=== PATIENT | female | born 1990 | race American Indian/Alaskan Native ===

== ENCOUNTER 2017-07-06 21:45 | Emergency (ER) | payer MEDICAID, OTHER ==
--- NOTE | 2017-07-07 01:37 | Ultrasound Report ---
FINAL REPORT PROCEDURE: US OB \T\gt; = 14 WEEKS FETUS TECHNIQUE: Real-time transabdominal sonography of the uterus, placenta, amniotic fluid, adnexa, and fetus was performed with image documentation. Measurements were obtained to determine age/size. M-mode Doppler was used to document heartbeat. CPT 68837 HISTORY: Complete OB US Patient fell from stairs COMPARISON: No prior studies are available for comparison. FINDINGS: ADDITIONAL GESTATION: None. GENERAL: IUP: Single living intrauterine . Position: Cephalic Placental position: Anterior, without previa. Amniotic fluid volume: Normal. Amniotic fluid index is 10.5 centimeters. MATERNAL: Uterus: Within normal limits. Cervical length: 3.5 cm. Internal Os: Closed. FETUS: Heart rate and rhythm: BPM, Regular. anatomic survey: Limited visualization of the neuro anatomy, spine and umbilical cord insertion. MEASUREMENTS: BPD: 9.16 centimeters correspond at 37 weeks and 1 day HC: 32.54 centimeters correspond at 36 weeks and 6 days AC: 29.37 centimeters correspond at 33 weeks and 3 days FL: 7.26 centimeters correspond at 37 weeks and 1 day Mean Gestational Age (composite criteria): 36 weeks and 1 day Ratio biometry: Normal. Estimated Weight: 2615 grams. Interval growth: No prior study available for comparison. Estimated Due Date (earliest scan): 08/02/2017 IMPRESSION: Single intrauterine gestation at 36 weeks and 1 day. Estimated due date: 08/02/2017. Anatomic survey is limited due to advanced gestational age.
[2017-07-07] MEDS ORDERED: TYLENOL PO ONE (02:15)
--- NOTE | 2017-07-07 02:32 | XRay Report ---
FINAL REPORT PROCEDURE: XR ANKLE 2V RT TECHNIQUE: RIGHT ankle radiographs, AP and lateral views. HISTORY: fall, ankle/foot pain, Consent signed COMPARISON: No prior studies are available for comparison. FINDINGS: Fracture (s) and/or Dislocation(s): There is a faint density dorsal to the navicular bone which could be a tiny cortical avulsion fracture. Bony structures are otherwise intact. Alignment: Normal. Joint space(s): Normal. Soft tissues: There is pretibial soft tissue swelling. Bone mineralization: Normal. Foreign bodies: Normal. Calcaneal spurring: Normal. IMPRESSION: Possible tiny cortical avulsion fracture of the dorsal aspect of the navicular bone with adjacent soft tissue swelling..
--- NOTE | 2017-07-07 02:36 | XRay Report ---
FINAL REPORT PROCEDURE: XR FOOT 2V RT TECHNIQUE: RIGHT foot radiographs, AP and lateral views. HISTORY: fall, ankle/foot pain, Consent signed COMPARISON: No prior studies are available for comparison. FINDINGS: Fracture (s) and/or Dislocation(s): There is a tiny cortical density dorsal to the navicular bone which could be a nondisplaced cortical avulsion fracture. Remainder the bony structures are intact. Alignment: Normal. Joint space(s): Normal. Soft tissues: There is pretibial soft tissue swelling. There is no mass. Bone mineralization: Normal. Foreign bodies: None. Calcaneal spurring: None. IMPRESSION: Possible tiny cortical avulsion fracture of the navicular bone with soft tissue swelling. There is no joint dislocation.
--- NOTE | 2017-07-07 02:50 | Emergency Department Report ---
ED Fall HPI - General Chief Complaint: Extremity Injury, Lower Stated Complaint: FALL Source: patient Mode of arrival: Wheelchair - Related Data Home Medications Medication Instructions Recorded Confirmed Last Taken Vit#96/Ferrous Fum/FA 1 tab PO DAILY 03/29/14 03/29/14 03/28/14 12:00 [ Tablet] 1 Allergies Allergy/AdvReac Type Severity Reaction Status Date / Time No Known Allergies Allergy Unverified 03/29/14 00:52 ED Review of Systems ROS: Stated complaint: FALL Other details as noted in HPI ED Past Medical Hx - Past Medical History Previous Medical History?: No Hx Hypertension: No Hx Congestive Heart Failure: No Hx Diabetes: No Hx Deep Vein Thrombosis: No Hx Renal Disease: No Hx Sickle Cell Disease: No Hx Seizures: No Hx Asthma: No Hx COPD: No Hx HIV: No - Surgical History Past Surgical History?: No - Social History Smoking Status: Never Smoker Substance Use Type: None - Medications Home Medications: Home Medications Medication Instructions Recorded Confirmed Last Taken Type Vit#96/Ferrous Fum/FA 1 tab PO DAILY 03/29/14 03/29/14 03/28/14 12:00 History [ Tablet] 1 ED Physical Exam - General Limitations: No Limitations ED Course Vital Signs 07/07/17 01:04 Temperature 98.7 F Pulse Rate 84 Respiratory 18 Rate Blood Pressure 118/85 [Right] O2 Sat by Pulse 100 Oximetry Critical care attestation.: If time is entered above; I have spent that time in minutes in the direct care of this critically ill patient, excluding procedure time. ED Disposition Condition: Stable Instructions: Labor/ Labor Instructions Referrals: PRIMARY CARE, [Primary Care Provider] - 7 Days Forms: [facility] Discharge Summary Print Language: EGYPTIAN
[2017-07-07 05:54] VITALS: BP 134/67
== END 2017-07-07 05:54 | disposition home or self-care (01) ==
LOC: ED 21:45 → EDSTATUS 22:18 → TRG 22:30 → ED 07-07 05:54
DX: O26.893 Other specified pregnancy related conditions, third trimester (principal); Z3A.36 36 weeks gestation of pregnancy; M25.572 Pain in left ankle and joints of left foot; W10.8XXA Fall (on) (from) other stairs and steps, initial encounter; Y93.89 Activity, other specified; Y92.89 Other specified places as the place of occurrence of the external cause; Y99.8 Other external cause status
CPT/HCPCS: 59025; 76805

== ENCOUNTER 2017-07-30 19:04 | Inpatient (IN) | payer OTHER ==
[2017-07-30] MEDS ORDERED: SUBLIMAZE IV PRN (22:55)
[2017-07-30] MEDS ORDERED: STADOL IV PRN (22:55)
[2017-07-30] MEDS ORDERED: CERVIDIL VG ONE (22:56)
[2017-07-30] MEDS ORDERED: AMBIEN PO PRN (22:57)
[2017-07-30] MEDS ORDERED: LACTATED RINGERS 1,000 ML IV SCH (23:00)
[2017-07-30 23:56] LABS: Hematocrit 54.3 % (30.3-42.9); Hemoglobin 17.2 gm/dl (10.1-14.3); Mean Corpuscular HGB Conc 32 % (30-34); Mean Corpuscular Hemoglobin 28 pg (28-32); Mean Corpuscular Volume 88 fl (79-97); Red Cell Distribution Width 16.5 % (13.2-15.2); White Blood Count 4.4 K/mm3 (4.5-11.0)
[2017-07-31 00:01] LABS: Platelet Count 83 K/mm3 (140-440)
[2017-07-31] MEDS ORDERED: PITOCin/NS 20 UNIT/1000ML DRIP 20,000 MILLIUNITS/1,000 ML BAG IV ONE (00:31)
[2017-07-31] MEDS ORDERED: POLYCILLIN/NS 2 GM/100 ML 0 GM/0 ML BAG IV ONE (00:31)
[2017-07-31] MEDS ORDERED: XYLOCAINE 2% INFILTRATI ONE ×2 (00:49→02:36)
[2017-07-31] MEDS ORDERED: PITOCin/NS 30 UNIT/500ML 30 UNITS/500 ML BAG IV SCH (01:00)
--- NOTE | 2017-07-31 01:21 | History and Physical Report ---
History of Present Illness Date of examination: 07/31/17 Date of admission: 07/30/17 22:21 History of present illness: 30 yo G2)1 EDC 08/09/17 @ 38.5 weeks gestation presented for induction of labor for oligohydramnios. Late transfer into care from [place] @ 37 weeks gestation. She is GBS positive. Past History Past Medical History: no pertinent history Past Surgical History: no surgical history Family/Genetic History: none Social history: no significant social history - Obstetrical History Expected Date of Delivery: 08/09/17 Actual Gestation: 38 Week(s) 5 Day(s) : 2 Para: 1 Number of Living Children: 1 Medications and Allergies Allergies Allergy/AdvReac Type Severity Reaction Status Date / Time No Known Allergies Allergy Unverified 03/29/14 00:52 Home Medications Medication Instructions Recorded Confirmed Last Taken Type Vit#96/Ferrous Fum/FA 1 tab PO DAILY 03/29/14 03/29/14 03/28/14 12:00 History [ Tablet] 1 Active Meds: Active Medications Butorphanol Tartrate (Stadol) 2 mg IV Q2H PRN PRN Reason: Labor Pain Fentanyl (Sublimaze) 100 mcg IV Q2HR PRN PRN Reason: pain Last Admin: 07/31/17 00:10 Dose: 100 mcg Lactated Ringer's (Lactated Ringers) 1,000 mls @ 125 mls/hr IV DIRECT JANICE Last Admin: 07/31/17 00:41 Dose: 125 mls/hr Oxytocin/Sodium Chloride (Pitocin/Ns 30 Unit/500ml) 30 units in 500 mls @ 1 mls /hr IV TITR JANICE PRN Reason: Protocol Zolpidem Tartrate (Ambien) 10 mg PO QHS PRN PRN Reason: Insomnia Review of Systems All systems: negative - Vital Signs Vital signs: Vital Signs Pulse Pulse Ox 90 97 07/30/17 20:44 07/30/17 20:44 Temp Pulse Resp BP Pulse Ox 97.3 F L 88 18 122/79 78 L 07/31/17 00:20 07/31/17 01:11 07/31/17 00:20 07/31/17 01:11 07/31/17 00:36 - Physical Exam Genitourinary (Female): Positive: normal external genitalia, normal perenium. Negative: perineal/vulvar lesions Results Result Diagrams: 07/30/17 22:36 Abnormal lab results 07/30/17 Range/Units 22:36 WBC 4.4 L (4.5-11.0) K/mm3 RBC 6.20 H (3.65-5.03) M/mm3 Hgb 17.2 H (10.1-14.3) gm/dl Hct 54.3 H (30.3-42.9) % RDW 16.5 H (13.2-15.2) % Plt Count 83 L (140-440) K/mm3 All other labs normal. Assessment and Plan A: IUP at term thrombocytopenia s/p P: Third stage labor
--- NOTE | 2017-07-31 01:34 | Procedure Note ---
OB Delivery Note - Delivery Date of Delivery: 07/31/17 (6-6 oz female @ 0034) Surgeon: ANIA IGLESIAS Estimated blood loss: 200cc - Vaginal Delivery presentation: vertex Delivery position: OA Intrapartum events: hydramnios, precipitous labor- <3hr Delivery induction: none Delivery monitor: external FHT, external uterine Route of delivery: Delivery placenta: spontaneous Delivery cord: 3 umbilical vessels Delivery laceration: 1st degree (vaginal, periurethal) Delivery repair: vicryl (one stitch with 3.0 Vicry on SH) Anesthesia: local - A at 1 minute: 8 at 5 minutes: 9 Infant Gender: Female (Rapid viable female, FHT decel to 60-80 with second stage. Left lateral, 02 and NICU at delivery. Spont. cry. Dried and bulb suctioned, placed skin to skin. Spont. placenta, with trailing membranes. cord blood collected. Placenta to pathology. Pitocin infusing. Clots expressed. Periurethal laceration repair as noted. GBS positive, inadequate treatment.)
[2017-07-31] MEDS ORDERED: MILK OF MAGNESIA PO PRN (01:37)
[2017-07-31] MEDS ORDERED: TYLENOL PO PRN (01:37)
[2017-07-31] MEDS ORDERED: DULCOLAX PR PRN (01:37)
[2017-07-31] MEDS ORDERED: TUCKS PAD TP PRN (01:37)
[2017-07-31] MEDS ORDERED: BENADRYL PO PRN (01:37)
[2017-07-31] MEDS ORDERED: LANSINOH TP PRN (01:37)
[2017-07-31] MEDS ORDERED: PHENERGAN PO PRN (01:37)
[2017-07-31] MEDS ORDERED: SODIUM CHLORIDE FLUSH SYRINGE 10 ML IV PRN (02:00)
[2017-07-31] MEDS ORDERED: PITOCin/NS 20 UNIT/1000ML DRIP 20 UNITS/1,000 ML BAG IV SCH (02:00)
[2017-07-31] MEDS: MOTRIN PO SCH (02:13)
[2017-07-31] MEDS: NORCO 5/325 PO PRN ×2 (06:02→16:16)
[2017-07-31 08:42] LABS: Basophils % (Auto) 0.2 % (0.0-1.8); Eosinophils % (Auto) 0.2 % (0.0-4.3); Hematocrit 31.4 % (30.3-42.9); Mean Corpuscular HGB Conc 32 % (30-34); Mean Corpuscular Hemoglobin 28 pg (28-32); Mean Corpuscular Volume 87 fl (79-97); Platelet Count 160 K/mm3 (140-440); Red Blood Count 3.61 M/mm3 (3.65-5.03); Red Cell Distribution Width 16.1 % (13.2-15.2); White Blood Count 12.9 K/mm3 (4.5-11.0)
[2017-07-31] MEDS: PRENATAL VITAMIN PO SCH (10:51)
[2017-08-01] MEDS: MOTRIN PO SCH ×4 (00:42→17:24)
[2017-08-01] MEDS ORDERED: M-M-R II VACCINE SUB-Q ONE (01:37)
[2017-08-01] MEDS ORDERED: BOOSTRIX IM ONE (06:00)
[2017-08-01] MEDS: PRENATAL VITAMIN PO SCH (11:03)
--- NOTE | 2017-08-01 15:44 | Progress Note ---
Assessment and Plan A: PPD#1 s/p at term; Asymptomatic anemia P: Routine care. Discharge home tomorrow. Subjective - Subjective Date of service: 08/01/17 Principal diagnosis: s/p at term Interval history: No overnight issues Patient reports: appetite normal, voiding normally, pain well controlled, ambulating normally : doing well Objective - Vital Signs Latest vital signs: Vital Signs Temp Pulse Resp BP 08/01/17 11:03 18 08/01/17 07:58 98.7 F 76 18 108/80 08/01/17 00:50 99 F 87 16 117/76 07/31/17 17:25 97.8 F 74 18 108/75 Intake and Output 08/01/17 08/01/17 08/01/17 06:59 14:59 22:59 Intake Total 420 480 Balance 420 480 Intake: Oral 480 Intake, Free Water 420 Other: Total, Intake Amount 120 # Voids Void 1 1 - Exam Breasts: Present: deferred Cardiovascular: Present: Regular rate Lungs: Present: Clear to auscultation Abdomen: Present: soft Uterus: Present: fundal height at umbilicus Extremities: Present: normal
--- NOTE | 2017-08-01 15:45 | Discharge Summary ---
Providers - Providers Date of Admission: 07/30/17 22:21 Date of discharge: 08/02/17 Attending physician: ESTHER PATEL MD Primary care physician: ESTHER PATEL MD Hospitalization Reason for admission: induction of labor Delivery: Procedure details: Please see delivery note. Episiotomy: none Laceration: 1st degree Other procedures: none complications: none Discharge diagnosis: IUP at term delivered baby: female Hospital course: Pt underwent which she tolerated well. Her course was uncomplicated and she met discharge criteria on PPD#2. Condition at discharge: Stable Disposition: DC-01 TO HOME OR SELFCARE - Discharge Diagnoses (1) Anemia Status: Acute Qualifiers: Anemia type: unspecified type Iron deficiency anemia type: I Vitamin B12 deficiency anemia type: V Folate deficiency anemia type: F Bone marrow failure anemia type: B Hemolytic anemia type: H Other causes of anemia: O Chronic kidney disease stage: C Qualified Code(s): D64.9 - Anemia, unspecified (2) Term of female Status: Acute (3) (normal spontaneous vaginal delivery) Status: Acute Plan - Discharge Medications Prescriptions: Ferrous Sulfate [Feosol 325 MG tab] 325 mg PO BID #60 tablet HYDROcodone/APAP 5-325 [[place] 5/325] 1 each PO Q6HR PRN #30 tablet PRN Reason: Pain Ibuprofen [Motrin] 600 mg PO Q6H PRN #30 tablet PRN Reason: Pain - Provider Discharge Summary Activity: routine, no sex for 6 weeks, no heavy lifting 4 weeks, no strenuous exercise Diet: routine Instructions: routine Additional instructions: [] Smoking cessation referral if applicable(refer to patient education folder for contact #) [] Refer to [facility] Booklet Call your doctor immediately for: * Fever > 100.5 * Heavy vaginal bleeding ( >1 pad per hour) * Severe persistent headache * Shortness of breath * Reddened, hot, painful area to leg or breast * Drainage or odor from incision. * Keep incision clean and dry at all times and follow doctor's instructions regarding bathing/showering - Follow up plan Follow up: ESTHER PATEL MD [Primary Care Provider] - 08/31/17 ( exam )
[2017-08-02] MEDS: MOTRIN PO SCH ×2 (00:10→06:16)
[2017-08-02 10:08] VITALS: BP 107/67
[2017-08-02] MEDS: PRENATAL VITAMIN PO SCH (10:54)
== END 2017-08-02 12:20 | disposition home or self-care (01) | DRG 775 ==
LOC: TRG 19:04 → LD 22:21 → OB 07-31 02:38
PROVIDERS: ADMIT Obstetrics & Gynecology; ATTEND Obstetrics & Gynecology
PROC: 10E0XZZ Delivery of Products of Conception, External Approach (ICD-10-PCS; principal; 2017-07-31)
PROC: 3E0234Z Introduction of Serum, Toxoid and Vaccine into Muscle, Percutaneous Approach (ICD-10-PCS; 2017-07-31)
PROC: 0HQ9XZZ Repair Perineum Skin, External Approach (ICD-10-PCS; 2017-07-31)
DX: O62.3 Precipitate labor (principal); O41.03X0 Oligohydramnios, third trimester, not applicable or unspecified; Z3A.38 38 weeks gestation of pregnancy; Z37.0 Single live birth; O99.824 Streptococcus B carrier state complicating childbirth; Z23 Encounter for immunization; O71.82 Other specified trauma to perineum and vulva; O76 Abnormality in fetal heart rate and rhythm complicating labor and delivery; O99.12 Other diseases of the blood and blood-forming organs and certain disorders involving the immune mechanism complicating childbirth; D69.6 Thrombocytopenia, unspecified; O90.81 Anemia of the puerperium; D64.9 Anemia, unspecified
CPT/HCPCS: 36415; 85025; 85027; 86592; 86850; 86900; 86901; 88307; 90471; 90715; 99211; G0463; J0290; J2590; J3010; J7120

== ENCOUNTER 2019-08-17 08:02 | Inpatient (IN) | payer OTHER ==
[2019-08-17] MEDS ORDERED: OXYTOCIN 20 UNIT/1000ML DRIP 20,000 MILLIUNITS/1,000 ML BAG IV ONE (08:20)
[2019-08-17] MEDS ORDERED: LACTATED RINGERS 1,000 ML ONE (08:20)
[2019-08-17] MEDS ORDERED: LIDOCAINE (2%) 20 MG/1 ML VIAL 20 ML MDV INFILTRATI ONE (08:38)
[2019-08-17] MEDS ORDERED: ONDANSETRON 4 MG/2 ML INJ IV PRN ×2 (08:52→10:00)
[2019-08-17 08:56] LABS: Basophils % (Auto) 0.3 % (0.0-1.8); Eosinophils # (Auto) 0.1 K/mm3 (0.0-0.4); Eosinophils % (Auto) 1.2 % (0.0-4.3); Hematocrit 37.5 % (30.3-42.9); Hemoglobin 12.9 gm/dl (10.1-14.3); Lymphocytes # (Auto) 3.4 K/mm3 (1.2-5.4); Lymphocytes % (Auto) 38.5 % (13.4-35.0); Mean Corpuscular HGB Conc 34 % (30-34); Mean Corpuscular Volume 97 fl (79-97); Monocytes # (Auto) 0.8 K/mm3 (0.0-0.8); Monocytes % (Auto) 8.7 % (0.0-7.3); Platelet Count 131 K/mm3 (140-440); Red Blood Count 3.86 M/mm3 (3.65-5.03); Red Cell Distribution Width 14.1 % (13.2-15.2)
[2019-08-17] MEDS ORDERED: LACTATED RINGERS 1,000 ML IV SCH ×2 (09:00)
[2019-08-17] MEDS ORDERED: OXYTOCIN 20 UNIT/1000ML DRIP 20 UNITS/1,000 ML BAG IV SCH ×2 (09:00)
--- NOTE | 2019-08-17 09:00 | History and Physical Report ---
History of Present Illness Date of examination: 08/17/19 Date of admission: 08/17/19 08:06 Chief complaint: Contractions History of present illness: Pt is a 28 yo at 39.5 weeks EGA who presents in active labor, judy q2 min. Contractions began last night. She reports positive movement and denies LOF or vaginal bleeding. She has received care with [facility], complicated by mild anemia, ASCUS pap, borderline gestational thrombocytopenia, and lapse in care from 27 to 36 weeks. She is GBS negative. Past History Past Medical History: no pertinent history Past Surgical History: no surgical history RN CAMP History: abnormal PAP smear (ASCUS) Family/Genetic History: diabetes Social history: no significant social history - Obstetrical History Expected Date of Delivery: 08/19/19 Actual Gestation: 39 Week(s) 5 Day(s) : 3 Para: 2 Hx # Term Pregnancies: 2 Number of Living Children: 2 Medications and Allergies Allergies Allergy/AdvReac Type Severity Reaction Status Date / Time No Known Allergies Allergy Unverified 03/29/14 00:52 Home Medications Medication Instructions Recorded Confirmed Last Taken Type Ferrous Sulfate [Feosol 325 MG tab] 325 mg PO BID #60 tablet 08/01/17 Unknown Rx HYDROcodone/APAP 5-325 [[place] 1 each PO Q6HR PRN #30 tablet 08/01/17 Unknown Rx 5/325] Ibuprofen [Motrin] 600 mg PO Q6H PRN #30 tablet 08/01/17 Unknown Rx Active Meds: Active Medications Acetaminophen (Tylenol) 650 mg PO Q4H PRN PRN Reason: Pain MILD(1-3)/Fever >100.5/DORMAN Bisacodyl (Dulcolax) 10 mg CA BID PRN PRN Reason: Constipation Diphenhydramine HCl (Benadryl) 25 mg PO Q6H PRN PRN Reason: Itching Diphtheria/Tetanus/Acell Pertussis (Boostrix) 0.5 ml IM .ONCE ONE Stop: 08/18/19 08:53 Ephedrine Sulfate (Ephedrine Sulfate) 10 mg IV Q2M PRN PRN Reason: Hypotension Ferrous Sulfate (Feosol) 325 mg PO BID JANICE Lactated Ringer's (Lactated Ringers) 1,000 mls @ 125 mls/hr IV DIRECT JANICE Oxytocin/Sodium Chloride (Pitocin/Ns 20 Unit/1000ml Drip) 20 units in 1,000 mls @ 125 mls/hr IV DIRECT JANICE Oxytocin/Sodium Chloride (Pitocin/Ns 20 Unit/1000ml Drip) 20 units in 1,000 mls @ 125 mls/hr IV DIRECT JANICE Lactated Ringer's (Lactated Ringers) 1,000 mls @ 125 mls/hr IV DIRECT JANICE Ibuprofen (Ibuprofen) 600 mg PO Q6H JANICE Lidocaine (Xylocaine 2%) 20 ml INFILTRATI ONCE ONE Stop: 08/17/19 08:50 Magnesium Hydroxide (Milk Of Magnesia) 30 ml PO HS PRN PRN Reason: Constipation Mineral Oil (Mineral Oil) 30 ml PO QHS PRN PRN Reason: Constipation Misoprostol (Cytotec) 800 mcg CA PRN PRN PRN Reason: Uterine Bleeding Multi-Ingredient Ointment (Lansinoh) 1 applic TP PRN PRN PRN Reason: Sore Nipples Ondansetron HCl (Zofran) 4 mg IV Q8H PRN PRN Reason: Nausea And Vomiting Ondansetron HCl (Zofran) 4 mg IV Q8H PRN PRN Reason: Nausea And Vomiting Oxycodone/Acetaminophen (Percocet 5/325) 1 tab PO Q6H PRN PRN Reason: Pain, Moderate (4-6) Promethazine HCl (Phenergan) 25 mg CA Q6H PRN PRN Reason: Nausea And Vomiting Promethazine HCl (Phenergan) 25 mg PO Q6H PRN PRN Reason: Nausea And Vomiting Sodium Chloride (Sodium Chloride Flush Syringe 10 Ml) 10 ml IV PRN NR Terbutaline Sulfate (Brethine) 0.25 mg SUB-Q ONCE PRN PRN Reason: Hyperstimulation/Hypertonicity Terbutaline Sulfate (Brethine) 0.25 mg IVP ONCE PRN PRN Reason: Hyperstimulation/Hypertonicity Witch Shanti/Glycerin (Tucks Pad) 1 each TP PRN PRN PRN Reason: Hemorrhoid/cleansing/soothing Review of Systems All systems: negative Genitourinary: contractions, no vaginal bleeding, no vaginal discharge, no leakage of fluid - Vital Signs Vital signs: Vital Signs Pulse BP 101 H 109/65 08/17/19 08:10 08/17/19 08:10 Temp Pulse Resp BP Pulse Ox 98.4 F 90 16 139/70 08/17/19 08:37 08/17/19 08:53 08/17/19 08:37 08/17/19 08:53 - Physical Exam Lungs: Positive: Normal air movement Abdomen: Positive: normal appearance (gravid), soft Genitourinary (Female): Positive: normal external genitalia, normal perenium Vagina: Positive: normal moisture Uterus: Positive: enlarged (gravid) Anus/Rectum: Positive: normal perianal skin Extremities: Positive: normal - Obstetrical FHR: category 2 (early decelerations) Uterine Contraction Monitor Mode: External Cervical Dilatation: 9.5 Cervical Effacement Percentage: 100 Uterine Contraction Frequency (min): 2 Uterine Contraction Pattern: Regular Uterine Tone Measurement Phase: Contraction Uterine Contraction Intensity: Strong/Firm Results Result Diagrams: 08/17/19 08:41 Abnormal lab results 08/17/19 Range/Units 08:41 MCH 33 H (28-32) pg Plt Count 131 L (140-440) K/mm3 Lymph % (Auto) 38.5 H (13.4-35.0) % [place] % (Auto) 8.7 H (0.0-7.3) % All other labs normal. Assessment and Plan 28 yo at 39.5 weeks EGA Active labor GBS negative Limited care Admit to L&D, anticipate prompt
--- NOTE | 2019-08-17 09:05 | Procedure Note ---
OB Delivery Note - Delivery Date of Delivery: 08/17/19 Surgeon: JESSIE LEÓN ([facility]) Estimated blood loss: 100cc - Vaginal Delivery presentation: vertex Delivery position: OA Intrapartum events: other(please specify) (Multiple early decelerations) Delivery induction: none Delivery augmentation: rupture of membranes Delivery monitor: external FHT, external uterine Route of delivery: Delivery placenta: expressed Delivery cord: 3 umbilical vessels Episiotomy: none Delivery laceration: 1st degree Delivery repair: vicryl Anesthesia: local Delivery comments: Pt arrived in room at 9cm dilation. Progressed to C/C/+1. Excellent maternal effort results in of vigorous female . Delayed cord clamping. Placenta delivered intact with gentle traction and maternal effort. Minimal EBL 100cc. Pitocin infusing post-placenta. 1st degree lac repaired to excellent hemostasis. - Infant A at 1 minute: 8 at 5 minutes: 9 Infant Gender: Female
[2019-08-17] MEDS ORDERED: LANOLIN/ZINC/DIMETHICONE (LANSINOH) 7 GM TP PRN (09:30)
[2019-08-17] MEDS ORDERED: ePHEDrine SULFATE 50 MG/1 ML INJ IV PRN (09:30)
[2019-08-17] MEDS ORDERED: diphenhydrAMINE 25 MG CAP PO PRN (09:30)
[2019-08-17] MEDS ORDERED: WITCH HAZEL/ GLYCERIN PAD TP PRN (09:30)
[2019-08-17] MEDS ORDERED: ACETAMINOPHEN 325 MG TAB PO PRN (09:30)
[2019-08-17] MEDS ORDERED: LIDOCAINE (2%) 20 MG/1 ML VIAL 20 ML MDV INFILTRATI NR (10:00)
[2019-08-17] MEDS ORDERED: MINERAL OIL 30 ML ORAL LIQD PO PRN (10:00)
[2019-08-17] MEDS ORDERED: PROMETHAZINE 25 MG RECT SUPP PR PRN (10:00)
[2019-08-17] MEDS ORDERED: PROMETHAZINE 25 MG TAB PO PRN (10:30)
[2019-08-17] MEDS ORDERED: TERBUTALINE 1 MG/1 ML INJ SUB-Q PRN (10:30)
[2019-08-17] MEDS ORDERED: miSOPROStol 100 MCG TAB PR PRN (10:30)
[2019-08-17] MEDS ORDERED: oxyCODONE /ACETAMINOPHEN 5-325MG TAB PO PRN (10:30)
[2019-08-17] MEDS ORDERED: TERBUTALINE 1 MG/1 ML INJ IVP PRN (10:30)
[2019-08-17] MEDS: FERROUS SULFATE 325 MG TAB PO SCH ×2 (10:44→21:31)
[2019-08-17] MEDS: IBUPROFEN 600 MG TAB PO SCH ×2 (10:44→17:32)
[2019-08-17 19:44] LABS: Hematocrit 33.5 % (30.3-42.9); Hemoglobin 11.2 gm/dl (10.1-14.3)
[2019-08-17] MEDS ORDERED: MAGNESIUM HYDROXIDE (MOM) ORAL LIQD UDC PO PRN (22:00)
[2019-08-18] MEDS: IBUPROFEN 600 MG TAB PO SCH ×3 (01:49→22:16)
[2019-08-18] MEDS ORDERED: TETANUS,DIPH,PERTUSS(ACELL) VACCINE 0.5 ML SYRINGE IM ONE (06:00)
--- NOTE | 2019-08-18 08:36 | Progress Note ---
Assessment and Plan PPD1 s/p Vital signs and labs stable Discharge to home tomorrow Subjective - Subjective Date of service: 08/18/19 Principal diagnosis: Interval history: Pt is PPD1 s/p and 1st degree perineal laceration Patient reports: appetite normal, voiding normally, pain well controlled, ambulating normally [place]: doing well, nursing well (some bottle, primarily breast) Objective - Vital Signs Latest vital signs: Vital Signs Temp Pulse Resp BP BP Pulse Ox 08/18/19 01:14 98.5 F 92 H 20 108/66 98 08/17/19 20:32 98.6 F 78 18 122/72 100 08/17/19 16:58 98.2 F 18 105/73 08/17/19 12:35 98.3 F 73 18 116/70 08/17/19 09:49 88 111/72 08/17/19 09:35 82 114/69 08/17/19 09:19 97 H 124/62 08/17/19 09:04 86 112/68 08/17/19 08:53 90 139/70 08/17/19 08:37 98.4 F 16 Intake and Output 08/17/19 08/18/19 08/18/19 23:59 07:59 15:59 Intake Total 360 Balance 360 Intake: Intake, Free Water 360 - Exam Lungs: Present: Normal air movement Abdomen: Present: normal appearance, soft Uterus: Present: normal, firm, fundal height below umbilicus Extremities: Present: normal - Labs Labs: Abnormal lab results 08/17/19 Range/Units 08:41 MCH 33 H (28-32) pg Plt Count 131 L (140-440) K/mm3 Lymph % (Auto) 38.5 H (13.4-35.0) % [place] % (Auto) 8.7 H (0.0-7.3) %
--- NOTE | 2019-08-18 08:38 | Discharge Summary ---
Providers - Providers Date of Admission: 08/17/19 08:06 Date of discharge: 08/19/19 Attending physician: SONIA QUESADA Primary care physician: SONIA QUESADA Hospitalization Reason for admission: active labor Delivery: Episiotomy: none Laceration: 1st degree Other procedures: none complications: none Discharge diagnosis: IUP at term delivered baby: female Hospital course: Pt arrived in active labor and promptly progressed to . Hospital course uncomplicated. Condition at discharge: Good Disposition: DC-01 TO HOME OR SELFCARE Plan - Discharge Medications Prescriptions: Ferrous Sulfate [Ferrous Sulfate 324 MG] 324 mg PO BID #60 tablet. Ibuprofen [Motrin] 600 mg PO Q6H #90 - Provider Discharge Summary Activity: routine, no sex for 6 weeks, no heavy lifting 4 weeks, no strenuous exercise Diet: routine Instructions: routine Additional instructions: [] Smoking cessation referral if applicable(refer to patient education folder for contact #) [] Refer to [facility] Booklet Call your doctor immediately for: * Fever > 100.5 * Heavy vaginal bleeding ( >1 pad per hour) * Severe persistent headache * Shortness of breath * Reddened, hot, painful area to leg or breast * Drainage or odor from incision. * Keep incision clean and dry at all times and follow doctor's instructions regarding bathing/showering - Follow up plan Follow up: JESSIE LEÓN CNM [Advanced Practice Nurse] - 6 Weeks (Please call [facility] to schedule appointment.)
[2019-08-18] MEDS: FERROUS SULFATE 325 MG TAB PO SCH ×2 (09:41→21:35)
[2019-08-19] MEDS: IBUPROFEN 600 MG TAB PO SCH (04:31)
[2019-08-19] MEDS: FERROUS SULFATE 325 MG TAB PO SCH (09:21)
[2019-08-19 12:51] VITALS: BP 116/78
== END 2019-08-19 13:57 | disposition home or self-care (01) | DRG 775 ==
LOC: TRG 08:02 → LD 08:06 → OB 10:18
PROVIDERS: ADMIT Obstetrics & Gynecology; ATTEND Obstetrics & Gynecology
PROC: 10E0XZZ Delivery of Products of Conception, External Approach (ICD-10-PCS; principal; 2019-08-17)
PROC: 0HQ9XZZ Repair Perineum Skin, External Approach (ICD-10-PCS; 2019-08-17)
PROC: 3E0234Z Introduction of Serum, Toxoid and Vaccine into Muscle, Percutaneous Approach (ICD-10-PCS; 2019-08-18)
DX: O70.0 First degree perineal laceration during delivery (principal); Z3A.39 39 weeks gestation of pregnancy; Z37.0 Single live birth; Z23 Encounter for immunization; Z83.3 Family history of diabetes mellitus; Z79.899 Other long term (current) drug therapy
CPT/HCPCS: 36415; 85014; 85018; 85025; 86592; 86850; 86900; 86901; G0378; J2590; J7120

== ENCOUNTER 2022-06-03 17:08 | Inpatient (IN) | payer OTHER ==
[2022-06-03] MEDS ORDERED: LACTATED RINGERS 1,000 ML IV SCH (17:30)
[2022-06-03] MEDS ORDERED: LIDOCAINE (2%) 20 MG/1 ML VIAL 20 ML MDV INFILTRATI SCH (17:30)
[2022-06-03] MEDS ORDERED: LOPERAMIDE 2 MG CAP PO PRN (18:00)
[2022-06-03] MEDS ORDERED: BUTORPHANOL 2 MG/1 ML INJ IV PRN (18:00)
[2022-06-03] MEDS ORDERED: OXYTOCIN DRIP 30 UNITS/500 ML BAG IV SCH ×3 (18:00→23:30)
[2022-06-03] MEDS ORDERED: ACETAMINOPHEN 325 MG TAB PO PRN (18:00)
[2022-06-03] MEDS ORDERED: fentaNYL 100 MCG/2 ML INJ IV PRN (18:00)
[2022-06-03] MEDS ORDERED: MINERAL OIL 30 ML ORAL LIQD PO PRN (18:00)
[2022-06-03] MEDS ORDERED: CARBOPROST TROMETHAMINE 250 MCG/1 ML INJ IM PRN (18:00)
[2022-06-03] MEDS ORDERED: METHYLERGONOVINE MALEATE 0.2 MG/ML VIAL IM PRN (18:00)
[2022-06-03] MEDS ORDERED: OXYTOCIN 10 UNIT/1 ML INJ IM PRN (18:00)
[2022-06-03] MEDS ORDERED: miSOPROStol 200 MCG TAB PR PRN (18:00)
[2022-06-03] MEDS ORDERED: ePHEDrine SULFATE 50 MG/1 ML INJ IV PRN (18:00)
[2022-06-03] MEDS ORDERED: ONDANSETRON 4 MG/2 ML INJ IV PRN ×2 (18:00→23:30)
[2022-06-03] MEDS ORDERED: NALOXONE 0.4 MG/1 ML INJ IV PRN (18:00)
[2022-06-03] MEDS ORDERED: TERBUTALINE 1 MG/1 ML INJ SUB-Q PRN (18:00)
--- NOTE | 2022-06-03 18:04 | History and Physical Report ---
History of Present Illness Date of examination: 06/03/22 Chief complaint: contractions since 3 pm History of present illness: Pt is a 31 year old female CELI 06/21/22 at 37w3d who presents with regular painful contractions and advanced cervical dilation of 7 cm. She denies vaginal bleeding and leakage of fluid. She has had care at [facility] since 22 wks complicated by late entry to care. She is GBS negative. Past History Past Medical History: no pertinent history Past Surgical History: no surgical history Family/Genetic History: diabetes Social history: no significant social history - Obstetrical History Expected Date of Delivery: 06/21/22 Actual Gestation: 37 Week(s) 3 Day(s) : 4 Para: 3 Hx # Term Pregnancies: 3 Number of Pregnancies: 0 Spontaneous Abortions: 0 Induced : 0 Number of Living Children: 3 Medications and Allergies Allergies Allergy/AdvReac Type Severity Reaction Status Date / Time No Known Allergies Allergy Unverified 03/29/14 00:52 Home Medications Medication Instructions Recorded Confirmed Last Taken Type Ferrous Sulfate [Feosol 325 MG tab] 325 mg PO BID #60 tablet 08/01/17 Unknown Rx HYDROcodone/APAP 5-325 [[place] 1 each PO Q6HR PRN #30 tablet 08/01/17 Unknown Rx 5/325] Ibuprofen [Motrin] 600 mg PO Q6H PRN #30 tablet 08/01/17 Unknown Rx Ferrous Sulfate [Ferrous Sulfate 324 mg PO BID #60 tablet.dr 08/17/19 Unknown Rx 324 MG] Ibuprofen [Motrin] 600 mg PO Q6H #90 08/17/19 Unknown Rx Active Meds: Active Medications Acetaminophen (Acetaminophen 325 Mg Tab) 650 mg PO Q4H PRN PRN Reason: Pain, Mild (1-3) Butorphanol Tartrate (Butorphanol 2 Mg/1 Ml Inj) 1 mg IV Q2H PRN PRN Reason: Pain, Moderate(4-6) LABOR PAIN Carboprost Tromethamine (Carboprost Tromethamine 250 Mcg/1 Ml Inj) 250 mcg IM ONCE PRN PRN Reason: Uterine Bleeding Ephedrine Sulfate (Ephedrine Sulfate 50 Mg/1 Ml Inj) 10 mg IV Q2M PRN PRN Reason: Hypotension Fentanyl (Fentanyl 100 Mcg/2 Ml Inj) 100 mcg IV Q2H PRN PRN Reason: Pain,Severe (7-10) LABOR PAIN Oxytocin/Sodium Chloride (Pitocin/Ns 30 Unit/500ml) 30 units in 500 mls @ 2 mls/hr IV TITR JANICE; Protocol Lactated Ringer's (Lactated Ringers) 1,000 mls @ 125 mls/hr IV DIRECT JANICE Oxytocin/Sodium Chloride (Pitocin/Ns 30 Unit/500ml) 30 units in 500 mls @ 40 mls/hr IV TITR JANICE; Protocol Lidocaine (Lidocaine (2%) 20 Mg/1 Ml Vial 20 Ml Mdv) 20 ml INFILTRATI ONCE@1730 JANICE Stop: 06/04/22 17:29 Loperamide HCl (Loperamide 2 Mg Cap) 2 mg PO ONCE PRN PRN Reason: give with Hemabate Methylergonovine Maleate (Methylergonovine Maleate 0.2 Mg/Ml Vial) 0.2 mg IM ONCE PRN PRN Reason: Uterine Bleeding Mineral Oil (Mineral Oil 30 Ml Oral Liqd) 30 ml PO QHS PRN PRN Reason: Constipation Misoprostol (Misoprostol 200 Mcg Tab) 800 mcg WV ONCE PRN PRN Reason: Uterine Bleeding Naloxone HCl (Naloxone 0.4 Mg/1 Ml Inj) 0.1 mg IV Q2MIN PRN PRN Reason: Res Rate </= 8 or 02 SAT < 92% Ondansetron HCl (Ondansetron 4 Mg/2 Ml Inj) 4 mg IV Q8H PRN PRN Reason: Nausea And Vomiting Oxytocin (Oxytocin 10 Unit/1 Ml Inj) 10 unit IM ONCE PRN PRN Reason: Uterine Bleeding Terbutaline Sulfate (Terbutaline 1 Mg/1 Ml Inj) 0.25 mg SUB-Q ONCE PRN PRN Reason: Hyperstimulation/Hypertonicity Review of Systems All systems: negative - Physical Exam Breasts: Positive: deferred Abdomen: Positive: soft (gravid ) Uterus: Positive: enlarged (gravid ) Extremities: Positive: normal - Obstetrical FHR: auscultation normal Cervical Dilatation: 7 Cervical Effacement Percentage: 100 station: -1 Uterine Contraction Pattern: Regular Uterine Tone Measurement Phase: Resting Uterine Contraction Intensity: Strong/Firm Results All other labs normal. Assessment and Plan A: IUP at 37w3d Active Labor Late entry to care GBS Negative P: Admit to labor and delivery Routine intrapartum care AROM- thick meconium Closely monitor maternal and status
--- NOTE | 2022-06-03 19:05 | Procedure Note ---
OB Delivery Note - Delivery Date of Delivery: 06/03/22 Surgeon: BINTA SMITH Estimated blood loss: 500cc - Vaginal Delivery presentation: vertex Delivery position: OA Intrapartum events: uterine atony (s/p Methergine 0.2 mg IM ) Delivery induction: none Delivery augmentation: rupture of membranes Delivery monitor: external FHT, external uterine Route of delivery: Delivery placenta: spontaneous Episiotomy: none Delivery laceration: 2nd degree Delivery repair: vicryl Anesthesia: local, intravenous - A at 1 minute: 8 at 5 minutes: 9 Gender: Male (2940g (6lb 8oz) @ 1829 pm)
[2022-06-03] MEDS ORDERED: KETOROLAC 30 MG/1 ML INJ IV ONE (19:11)
[2022-06-03 22:28] LABS: Hematocrit 41.4 % (30.3-42.9); Hemoglobin 14.2 gm/dl (10.1-14.3); Mean Corpuscular HGB Conc 34 % (30-34); Mean Corpuscular Volume 100 fl (79-97); Platelet Count 111 K/mm3 (140-440); Red Blood Count 4.16 M/mm3 (3.65-5.03); Red Cell Distribution Width 14.2 % (13.2-15.2)
[2022-06-03] MEDS ORDERED: PROMETHAZINE 25 MG TAB PO PRN (23:30)
[2022-06-03] MEDS ORDERED: WITCH HAZEL/ GLYCERIN PAD TP PRN (23:30)
[2022-06-03] MEDS ORDERED: BENZOCAINE/MENTHOL 20/0.5% TOP SPRAY 56 GM TP PRN (23:30)
[2022-06-03] MEDS ORDERED: LANOLIN/ZINC/DIMETHICONE (LANSINOH) 7 GM TP PRN ×2 (23:30)
[2022-06-03] MEDS ORDERED: PROMETHAZINE 25 MG RECT SUPP PR PRN (23:30)
[2022-06-03] MEDS ORDERED: MAGNESIUM HYDROXIDE (MOM) ORAL LIQD UDC PO PRN (23:30)
[2022-06-03] MEDS ORDERED: diphenhydrAMINE 25 MG CAP PO PRN (23:30)
[2022-06-03] MEDS ORDERED: HYDROcodone/ACETAMINOPHEN 5-325 MG TAB PO PRN (23:30)
[2022-06-04] MEDS: IBUPROFEN 800 MG TAB PO SCH ×3 (05:29→17:30)
[2022-06-04 07:55] LABS: Hematocrit 40.3 % (30.3-42.9); Hemoglobin 13.3 gm/dl (10.1-14.3)
--- NOTE | 2022-06-04 08:15 | Progress Note ---
Assessment and Plan - Patient Problems (1) (normal spontaneous vaginal delivery) Current Visit: No Status: Acute Plan to address problem: Continue routine PP orders Anticipate d/c home tomorrow if stable (2) Elevated blood pressure reading Current Visit: Yes Status: Acute Plan to address problem: Denies any H/A Initiate Labetalol 100 mg po BID F/U in office 1 week after discharge Subjective - Subjective Date of service: 06/04/22 Principal diagnosis: S/P - PPD#1; Elevated B/P Interval history: Pt is a 31 year old female CELI 06/21/22 at 37w3d who presents with regular painful contractions and advanced cervical dilation of 7 cm. She denies vaginal bleeding and leakage of fluid. She has had care at [facility] since 22 wks complicated by late entry to care. She is GBS negative. Delivered viable male infant via . B/P are elevated on PPD#1, Labetalol initiated. Patient reports: appetite normal, voiding normally, pain well controlled, flatus, ambulating normally : doing well, bottle feeding (and ) Objective - Vital Signs Latest vital signs: Vital Signs Temp Pulse Resp BP BP Pulse Ox 06/04/22 05:29 18 06/04/22 05:08 98.1 F 90 20 141/99 95 06/04/22 01:31 18 06/04/22 01:12 98.7 F 91 H 18 146/106 97 06/03/22 21:05 98.8 F 91 H 20 136/91 98 06/03/22 20:02 90 142/95 06/03/22 19:59 92 H 162/97 06/03/22 19:24 94 H 151/88 06/03/22 19:08 107 H 131/94 06/03/22 19:07 99 H 144/86 06/03/22 19:06 97.2 F L 06/03/22 18:54 100 H 129/75 06/03/22 18:38 98 H 121/71 06/03/22 18:15 98.1 F 81 18 136/89 06/03/22 18:14 81 136/89 06/03/22 18:13 100 H 140/93 Intake and Output 06/03/22 06/04/22 06/04/22 23:59 07:59 15:59 Intake Total 240 360 Balance 240 360 Intake: Intake, Free Water 240 360 Other: # Voids Void 1 1 Weight 81.647 kg - Exam Breasts: Present: normal Cardiovascular: Present: Regular rate Lungs: Present: Normal air movement Abdomen: Present: soft Uterus: Present: firm, fundal height below umbilicus (U-2) Extremities: Present: normal Deep Tendon Reflex Grade: Normal +2 Incision: Present: other (2nd degree laceration, healing as expected) - Labs Labs: Abnormal lab results 06/03/22 Range/Units Unknown MCV 100 H (79-97) fl MCH 34 H (28-32) pg Plt Count 111 L (140-440) K/mm3
[2022-06-04] MEDS ORDERED: MEASLES, MUMPS & RUBELLA 12,500 UNIT/0.5 ML VACCINE SUB-Q ONE (19:28)
[2022-06-04] MEDS ORDERED: TETANUS,DIPH,PERTUSS(ACELL) VACCINE 0.5 ML SYRINGE IM ONE (19:28)
[2022-06-05] MEDS: IBUPROFEN 800 MG TAB PO SCH (04:55)
[2022-06-05 08:34] VITALS: BP 141/93
--- NOTE | 2022-06-05 08:43 | Discharge Summary ---
Providers - Providers Date of Admission: 06/03/22 17:18 Date of discharge: 06/05/22 Attending physician: BINTA SMITH 06/03/22 23:30 Consult to [employer] [CONS] Routine Reason For Exam: assistance with , SNS Primary care physician: BINTA SMITH Hospitalization Reason for admission: active labor Delivery: Episiotomy: none Laceration: 2nd degree (healing as expected) Other procedures: none complications: other (elevated B/Ps) Discharge diagnosis: IUP at term delivered, other (gestational hypertension) baby: male Hospital course: Pt is a 31 year old female CELI 06/21/22 at 37w3d who presents with regular painful contractions and advanced cervical dilation of 7 cm. She denies vaginal bleeding and leakage of fluid. She has had care at [facility] since 22 wks complicated by late entry to care. She is GBS negative. Delivered viable male infant via . B/P are elevated on PPD#1, Labetalol initiated. Discharge criteria met on PPD#2. F/U in office in 1 week for B/P check. Condition at discharge: Stable Disposition: 01 HOME / SELF CARE / HOMELESS - Discharge Diagnoses (1) (normal spontaneous vaginal delivery) Status: Acute (2) Elevated blood pressure reading Status: Acute Plan - Discharge Medications Prescriptions: labetaloL [Labetalol 200mg TAB] 200 mg PO BID 14 Days #28 tablet Ibuprofen [Motrin 800 MG tab] 800 mg PO Q8HR #30 tablet - Provider Discharge Summary Activity: routine, no sex for 6 weeks, no heavy lifting 4 weeks, no strenuous exercise Diet: routine Instructions: routine Additional instructions: [] Smoking cessation referral if applicable(refer to patient education folder for contact #) [] Refer to [facility] Booklet Call your doctor immediately for: * Fever > 100.5 * Heavy vaginal bleeding ( >1 pad per hour) * Severe persistent headache * Shortness of breath * Reddened, hot, painful area to leg or breast * Drainage or odor from incision. * Keep laceration site clean and dry at all times and follow doctor's instructions regarding bathing/showering * Follow-up at office in 11 week for B/P check - Follow up plan Follow up: BINTA SMITH MD [Primary Care Provider] - 7 Days
== END 2022-06-05 14:55 | disposition home or self-care (01) | DRG 775 ==
LOC: TRG 17:08 → APU 17:09 → LD 17:18 → TRG 18:03 → OB 21:51
PROVIDERS: ADMIT Obstetrics & Gynecology; ATTEND Obstetrics & Gynecology
PROC: 10E0XZZ Delivery of Products of Conception, External Approach (ICD-10-PCS; principal; 2022-06-03)
PROC: 0KQM0ZZ Repair Perineum Muscle, Open Approach (ICD-10-PCS; 2022-06-03)
PROC: 3E0234Z Introduction of Serum, Toxoid and Vaccine into Muscle, Percutaneous Approach (ICD-10-PCS; 2022-06-04)
PROC: 3E0134Z Introduction of Serum, Toxoid and Vaccine into Subcutaneous Tissue, Percutaneous Approach (ICD-10-PCS; 2022-06-04)
DX: O62.2 Other uterine inertia (principal); Z3A.37 37 weeks gestation of pregnancy; O70.1 Second degree perineal laceration during delivery; Z37.0 Single live birth; Z20.822 Contact with and (suspected) exposure to COVID-19; O13.4 Gestational [pregnancy-induced] hypertension without significant proteinuria, complicating childbirth; Z23 Encounter for immunization; O75.5 Delayed delivery after artificial rupture of membranes
CPT/HCPCS: 36415; 85014; 85018; 85027; 86592; 86850; 86900; 86901; 88307; G0378; J1885; U0003